=== PATIENT | male | born 1980 | race Caucasian/White ===

== ENCOUNTER → 2020-04-01 14:30 | Outpatient (CLI) | payer BC, SELFPAY ==
--- NOTE | ~2020-04-01 | XR_ITS ---
EXAMINATION: XR cervical spine 4-5V DATE: 04/01/2020 14:48 INDICATION: Cervical radiculopathy. TECHNIQUE: 6 views of cervical spine including flexion and extension views were obtained. COMPARISON: None. FINDINGS: There is hypolordosis of cervical spine. There is no abnormal motion with flexion or extens ion. Vertebral body heights are normal. There is mildly decreased disc height at C5-C6. The uncoverte bral joints are unremarkable. There is mild left facet joint hypertrophy at C3-C4. No central canal s tenosis or prevertebral soft tissue swelling. IMPRESSION: 1. Mild cervical spondylosis. Reviewed, dictated and finalized at location A. [employer]
== END ==
PROVIDERS: Visit Provider Nurse Practitioner Family
DX: M47.22 Other spondylosis with radiculopathy, cervical region (principal)
CPT/HCPCS: 72050

== ENCOUNTER 2020-04-04 15:44 | Outpatient (RCR) | payer BC, SELFPAY ==
--- NOTE | 2020-04-04 17:02 | PTOPEVAL ---
Thank you for referring Mahad Proctor to [facility].? The patient is scheduled to be seen for therapy? ____x/week for ___ weeks. Please review, sign, date and return this plan of care BERTA. I agree with and certify that the following plan of care is medically necessary. Referring Physician Date Admitting Provider: Attending Provider: Kristen Lantigua, ALFONZO Referring Provider: *PT Outpatient Evaluation Start: 04/04/20 15:58 Freq: Status: Active Protocol: Document 04/04/20 15:59 [facility] (Rec: 04/04/20 17:02 [facility] [id number]) Therapy Assessment Status Assessment Status Assessment Status Evaluation Evaluation Information Problem Diagnosis cervical spine pain, cervical radiculopathy Onset 04/01/20 Additional Evaluation Detail NDI - 34% functionally declined Subjective Information patient reports he has had Query Text:As Reported By Patient/ pain starting in the neck when Family he woke up one morning. he reports the pain then began gradually going down his back. he reports he is now having symptoms down the L arm with numbness. he reports he has burning in the L biceps. he reports no injury to the neck or arm. he report she has no pain in the neck. he reports he does feel tight. 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 he reports he has been having symptoms for about 2-3 weeks. he reports he has increased symptoms in the L arm with pulling or lifting activities. he reports he been self- limiting his activity due to fear of pain. Prior Level of Function Comments Additional Prior Level of Function prior to 2-3 week ago, no Comments issues with the neck or the L arm. Pain Assessment Timing of Pain Assessment Timing of Pain Assessment Assessment Pain Scale Pain Scale Used Numeric (1 - 10) Self Report Pain Assessment Neck Reported Pain Level 4 Pain Radiation Left Arm,Left Elbow Pain Frequency Acute,Continuous Lowest Pain Intensity 4 Greatest Radha
--- NOTE | 2020-05-14 11:12 | PCPTNOTE ---
05/14/20 - patient has not been to therapy in nearly a month. he has been called and reports he will not continue PT at this time. as of this date, patient will be DC'd from skilled PT services and all progress towards goals will be taken from most recent evaluation/note. JUSTICE
== END 2020-04-16 11:29 | disposition home or self-care (01) ==
LOC: CHSPT 15:44
PROVIDERS: Visit Provider Nurse Practitioner Family
DX: M54.12 Radiculopathy, cervical region (principal); M54.2 Cervicalgia
CPT/HCPCS: 97012; 97014; 97110; 97140; 97161; G0283

== ENCOUNTER 2021-01-13 11:49 | Outpatient (CLI) | payer BC, SELFPAY ==
[2021-01-13 13:09] LABS: SARS-CoV-2 RNA PCR Negative (Negative)
== END 2021-01-13 11:50 | disposition home or self-care (01) ==
LOC: CHSLAB 11:52
PROVIDERS: PCP Internal Medicine; Visit Provider Internal Medicine
DX: Z20.822 Contact with and (suspected) exposure to COVID-19 (principal)
CPT/HCPCS: C9803; U0003; U0005

== ENCOUNTER 2022-02-24 04:38 | Emergency (ER) | payer BC, SELFPAY ==
--- NOTE | ~2022-02-24 | XR_ITS ---
EXAMINATION: XR chest 1V portable DATE: 02/24/2022 05:05 INDICATION: Shortness of breath. COVID one week prior. TECHNIQUE: frontal view of the chest was obtained. COMPARISON: None FINDINGS: The lungs are clear with no focal airspace opacities, pulmonary edema, pleural effusion or pneumothor ax. The cardiomediastinal silhouette is normal. Visualized bones and soft tissues are unremarkable. IMPRESSION: 1. No acute cardiopulmonary disease. Reviewed, dictated and finalized at location A. HOST
[2022-02-24 04:40] VITALS: BP 120/87; PULSE 89; RESP 20; TEMP 36; O2SAT 98
[2022-02-24 05:04] LABS: Basophils Absolute Auto 0.01 K/mm3 (0.00-0.10); Basophils Percent Auto 0.2 % (0.0-1.0); Eosinophils Absolute Auto 0.04 K/mm3 (0.02-0.50); Eosinophils Percent Auto 0.9 % (1.0-6.0); Hematocrit 47.4 % (40.0-54.0); Hemoglobin 15.9 g/dL (14.0-18.0); Immature Granulocyte Absolute 0.03 K/mm3 (0.00-0.00); Immature Granulocyte Percent A 0.7 % (0.0-0.0); Lymphocytes Absolute Auto 1.89 K/mm3 (1.10-4.50); Mean Corpuscular HGB Conc 33.5 g/dL (32.0-36.0); Mean Corpuscular Hemoglobin 29.9 pg (27.0-31.0); Mean Corpuscular Volume 89.1 fL (78.0-102.0); Mean Platelet Volume 9.4 fl (8.7-11.0); Monocytes Absolute Auto 0.51 K/mm3 (0.10-0.90); Monocytes Percent Auto 11.1 % (2.0-11.0); Neutrophils Absolute Auto 2.1 K/mm3 (1.7-7.2); Neutrophils Percent Auto 46.1 % (50.0-70.0); Platelet Count Result 246 K/mm3 (150-420); Red Blood Count 5.32 M/mm3 (4.70-6.10); Red Cell Distribution Width 11.8 % (11.6-14.4); White Blood Count 4.6 K/mm3 (4.8-10.8)
[2022-02-24 05:18] LABS: Alanine Aminotransferase 29 U/L (16-63); Albumin Level 4.4 g/dL (3.4-5.0); Alkaline Phosphatase 69 U/L (46-116); Anion Gap 13 mmol/L (8-16); Aspartate Amino Transferase 19 U/L (15-37); Bilirubin,Total 0.9 mg/dL (0.00-1.00); Blood Urea Nitrogen 17 mg/dL (7-18); Carbon Dioxide 26 mmol/L (21-32); Chloride 102 mmol/L (98-108); Estimated CRCL calculation 86 ml/min; Estimated Glomerular Filt Rate > 60; Glucose 126 mg/dL (70-99); Osmolality Calculated 295 mOsm/kg (285-295); Potassium 4.1 mmol/L (3.5-5.1); Sodium 141 mmol/L (136-145); Total Protein 7.9 g/dL (6.4-8.2)
[2022-02-24 05:40] LABS: Influenza A QL RT-PCR Negative (Negative); Influenza B QL RT-PCR Negative (Negative); SARS-CoV-2 RNA PCR Positive (Negative)
--- NOTE | 2022-02-24 05:57 | ED.SOB ---
HPI - SOB/Dyspnea General Chief Complaint: Shortness of Breath/Dyspnea Stated Complaint: SOB, COVID + Source: patient and RN notes reviewed Mode of arrival: ambulatory Limitations: no limitations History of Present Illness HPI Narrative: patient states that he was diagnosed with COVID now 6 days ago. He saw his PCP who prescribed him Paxlovid. He said he only took it for 2 days and then stopped because it made him very sick. Did not call his primary care physician to discuss alternative medications.He was on his way to work and just felt horrible. He continues to have cough which when coughing so much makes him short of breath. He is having some nausea and mostly body aches. He has generalized weakness. MD elicited complaint: shortness of breath and cough Onset (ago): day(s) (this morning) Context: recent illness Timing: constant Severity: moderate Exacerbating factors: exertion and coughing Relieving factors: nothing Associated symptoms: cough Related Data Home Medications Medication Instructions Recorded Confirmed nirmatrelvir 300 mg (150 mg See Rx Instructions .Route .COMPLEX 02/24/22 02/24/22 x2)-ritonavir 100 mg tablet,dose pack(EUA) (Paxlovid) Allergies Allergy/AdvReac Type Severity Reaction Status Date / Time No Known Allergies Allergy Verified 02/24/22 04:46 Review of Systems Review of Systems: All systems reviewed & are unremarkable except as noted in HPI and below Gastrointestinal: Gastrointestinal: Reports nausea and Denies vomiting Musculoskeletal: Musculoskeletal: Reports myalgias Neurologic: Reports weakness PMFSH Past Medical History Medical History (Updated 02/24/22 @ 06:11 by Karan Rodas MD) No active medical problems Surgical History Surgical History (Updated 02/24/22 @ 06:11 by Karan Rodas MD) H/O knee surgery Social History Social History (Updated 02/24/22 @ 06:11 by Karan Rodas MD) Smoking status: Current every day smoker Tobacco type: cigarettes Exam Const: General: healthy appearing, no acute distress and alert Nutritional Appearance: well nourished Orientation/consciousness: patient oriented x3 Limitations: no limitations HENMT: Head: normal to inspection Ears: external ears normal Eyes: Conjunctivae: conjunctivae normal Pupils: Equal, round and reactive pupils present EOM: EOMs intact bilaterally Neck: Neck: normal visual inspection Resp: Effort & Inspection: normal respiratory effort, not labored and not tachypneic Auscultation: clear to auscultation bilaterally Cardio: Rate: regular rate Rhythm: regular rhythm GI: GI Palp: Yes Soft to palpation and No Tenderness to palpation present (GI) Auscultation: normal bowel sounds Back/Spine/Pelvis: Cervical Spine: cervical ROM normal Thoracic/Lumbar Spine: thoraco-lumbar ROM normal Skin: General skin exam: normal color Rashes: no rashes Neuro: General: patient oriented x3, moves all extremities, no focal motor deficits and CN's II-XI intact bilaterally Speech: normal speech Gait exam (Neuro): Normal gait present Extrem: General: normal to inspection and no clubbing, cyanosis or edema Psych: Mental Status: mental status grossly normal Affect: normal affect Attitude: cooperative Course Course Emergency Course: I explained to him that it is more than 5 days since he tested positive. There is no other medication that is indicated for COVID at this time. Hospitalization is not needed due to he is not requiring any supplemental oxygen is not respiratory distress. He can use Tylenol Motrin, cough cold medicine [id number]. I recommended that he get plenty of rest drink plenty of fluids eat healthy diet which is what was found to work in the last 3 years during the COVID pandemic. Vital Signs Vital signs: Vital Signs Temperature 36.0 C L 02/24/22 04:40 Pulse Rate 89 02/24/22 04:40 Respiratory Rate 20 02/24/22 04:40 Blood Pressure 120/87 02/24/22
[2022-02-24 06:08] VITALS: BP 122/84; PULSE 87; RESP 18; TEMP 36.4; O2SAT 97
== END 2022-02-24 06:17 | disposition home or self-care (01) ==
PROVIDERS: Emergency Provider Emergency Medicine; PCP Internal Medicine
DX: U07.1 COVID-19 (principal)
CPT/HCPCS: 36415; 71045; 80053; 85025; 87636; 99283

== ENCOUNTER 2022-04-03 02:25 | Day surgery (SDC) | payer BC, SELFPAY ==
[2022-03-18 14:25] VITALS: BMI 35.9
--- NOTE | 2022-04-02 13:46 | P.PNAN_ITS ---
Anes - Initial Pre Proc Eval Procedure: Operation Date: 04/03/22 08:15 Proposed Procedures p Esophagogastroduodenoscopy & Colonoscopy - Quincy Frazier MD Date/Time: 04/02/22 13:46 Surgeon: Quincy Frazier MD Pre Op Diagnosis: family hx colon ca, GERD, change in bowel habits Patient Data Age: 41 Gender: M Height: 1.73 m Weight: 107 kg Allergies Allergy/AdvReac Type Severity Reaction Status Date / Time No Known Allergies Allergy Verified 04/03/22 06:52 Home Medications Medication Instructions Recorded Confirmed Type acetaminophen 650 mg tablet 650 mg PO Q4H PRN Pain 03/18/22 04/03/22 History famotidine 40 mg tablet 40 mg PO DAILY 03/18/22 04/03/22 History ibuprofen 600 mg tablet 600 mg PO Q6H PRN Pain 03/18/22 04/03/22 History Patient hx anesthesia problems: none Family hx anesthesia problems: none Results Review: All pre-operative results and documents have been reviewed as part of the pre- operative evaluation. [facility] Past Medical History Medical History (Updated 04/02/22 @ 13:54 by Quincy Frazier MD) GERD (gastroesophageal reflux disease) Hyperlipidemia LAURA (obstructive sleep apnea) CPAP Surgical History Surgical History H/O knee surgery Social History Social History Smoking status: Current some day smoker Tobacco type: cigarettes Alcohol intake: current Drinks per week: 12 Substance use: current Substance use type: marijuana Other substance usage details: Nightly for sleep Living arrangements: with family Spiritual care concerns: No Anes - Eval Final PreProcedure Day of Procedure 04/02/22 13:46 Patient weight: obese Heart: regular rate and rhythm Lungs: clear to auscultation Airway: Mallampati scale class II Neurological: alert and oriented Last oral intake: >/= 8 hours ASA classification: III Emergent: no Anesthetic plan: proceed Anesthesia type and monitoring: general GIVS and standard monitoring Results Review: All pre-operative results and documents have been reviewed as part of the pre- operative evaluation. Informed Consent: The patient's anesthetic plan and its attendant risks and benefits were discussed with the patient/family/POA. Questions were solicited and answers provided to the satisfaction of the patient/family/POA.
--- NOTE | 2022-04-02 13:51 | PM.HPGS ---
History of Present Illness History of Present Illness Consent: Risks, benefits, and alternatives have been discussed and questions answered. Patient agrees to proceed with procedure. Chief complaint: family hx colon ca, GERD, change in bowel habits Narrative: Mahad Proctor is a 41 year old male Referred for colon cancer screening. He has family history of colon cancer. He also has problems with gastroesophageal reflux. for least a year or more he has had significant heartburn. Taking famotidine has helped somewhat. Also, avoiding food and drink before bedtime it has helped him. Denies dysphagia Review of Systems Review of Systems: All systems reviewed & are unremarkable except as noted in HPI and below PMFSH Past Medical History Medical History GERD (gastroesophageal reflux disease) Hyperlipidemia LAURA (obstructive sleep apnea) CPAP Surgical History Surgical History H/O knee surgery Social History Social History Smoking status: Current some day smoker Tobacco type: cigarettes Alcohol intake: current Drinks per week: 12 Substance use: current Substance use type: marijuana Other substance usage details: Nightly for sleep Living arrangements: with family Spiritual care concerns: No Meds Home Medications and Allergies Home Medications Medication Instructions Recorded Confirmed Type acetaminophen 650 mg tablet 650 mg PO Q4H PRN Pain 03/18/22 04/03/22 History famotidine 40 mg tablet 40 mg PO DAILY 03/18/22 04/03/22 History ibuprofen 600 mg tablet 600 mg PO Q6H PRN Pain 03/18/22 04/03/22 History Allergies Allergy/AdvReac Type Severity Reaction Status Date / Time No Known Allergies Allergy Verified 04/03/22 06:52 Exam Const: General: alert Orientation/consciousness: patient oriented x3 Resp: Auscultation: clear to auscultation bilaterally Cardio: Rhythm: regular rhythm GI: GI Palp: Yes Soft to palpation and No Tenderness to palpation present (GI) Neuro: General: patient oriented x3 Assessment and Plan Assessment and plan (1) Colon cancer screening: Code(s): Z12.11 - Encounter for screening for malignant neoplasm of colon Status: Acute Assessment and Plan: Colonoscopy with possible biopsy or polypectomy or cautery or injection of substances. (2) GERD (gastroesophageal reflux disease): Code(s): K21.9 - Gastro-esophageal reflux disease without esophagitis Status: Acute Assessment and Plan: EGD with possible biopsy or dilatation or cautery.
[2022-04-03 06:54] VITALS: BP 116/73; PULSE 79; RESP 16; TEMP 36.4; O2SAT 98
[2022-04-03] MEDS: LACTATED RINGERS 1,000 ML 150 ML IV CONT (07:03)
[2022-04-03] MEDS: SIMETHICONE ORAL SUSPENSION 20 MG/0.3 ML 30 ML BOTTLE 0.6 ML IRRIGATION (08:22)
--- NOTE | 2022-04-03 08:38 | SUR.OPER ---
EGD: start 806, end 810 Colon: start 815, end 837
[2022-04-03 08:42] VITALS: BP 97/72; PULSE 69; RESP 21; O2SAT 98
[2022-04-03 08:52] VITALS: BP 95/70; PULSE 70; RESP 22; O2SAT 100
[2022-04-03 09:02] VITALS: BP 120/90; PULSE 65; RESP 18; O2SAT 100
== END 2022-04-03 09:15 | disposition home or self-care (01) ==
PROVIDERS: PCP Internal Medicine; Visit Provider Internal Medicine Gastroenterology
PROC: 0DJ08ZZ Inspection of Upper Intestinal Tract, Via Natural or Artificial Opening Endoscopic (ICD-10-PCS; CPT 43235; principal; 2022-04-03 08:15)
DX: Z12.11 Encounter for screening for malignant neoplasm of colon (principal); D12.2 Benign neoplasm of ascending colon; Z80.0 Family history of malignant neoplasm of digestive organs; K21.00 Gastro-esophageal reflux disease with esophagitis, without bleeding; K29.70 Gastritis, unspecified, without bleeding; E78.5 Hyperlipidemia, unspecified; G47.33 Obstructive sleep apnea (adult) (pediatric); F12.90 Cannabis use, unspecified, uncomplicated; F17.210 Nicotine dependence, cigarettes, uncomplicated; E66.9 Obesity, unspecified; Z68.35 Body mass index [BMI] 35.0-35.9, adult
CPT/HCPCS: 45385; 45381; 45388; 43239; 87081; 88305; J2704; J7120

== ENCOUNTER 2022-10-16 02:26 | Day surgery (SDC) | payer BC, SELFPAY ==
[2022-10-06 13:16] VITALS: BMI 37.2
--- NOTE | 2022-10-15 15:18 | P.HP_ITS ---
History of Present Illness History of Present Illness Consent: Risks, benefits, and alternatives have been discussed and questions answered. Patient agrees to proceed with procedure. Chief complaint: ascending colon polyps Narrative: Mahad Proctor is a 42 year old male Who 6 months ago underwent colonoscopy. He was found have 2 quite large polyps in the ascending colon. These were able to be removed endoscopically. The larger of the 2 had a broad base in for fear that it was not completely removed, argon plasma public relations account supervisor was used at the base. He returns now to ensure that there is no residual polyp tissue Review of Systems Review of Systems: All systems reviewed & are unremarkable except as noted in HPI and below PMFSH Past Medical History Medical History GERD (gastroesophageal reflux disease) Hyperlipidemia LAURA (obstructive sleep apnea) CPAP Surgical History Surgical History H/O knee surgery Social History Social History Smoking status: Current some day smoker Tobacco type: cigarettes Alcohol intake: current Drinks per week: 12 Substance use: current Substance use type: marijuana Other substance usage details: Nightly for sleep Living arrangements: with family Additional living arrangements comments: With Janeth Tavarez Home Medications and Allergies Home Medications Medication Instructions Recorded Confirmed Type acetaminophen 650 mg tablet 650 mg PO Q4H PRN Pain 03/18/22 10/06/22 History ibuprofen 600 mg tablet 600 mg PO Q6H PRN Pain 03/18/22 10/06/22 History pantoprazole 40 mg tablet,delayed 40 mg PO QAM 4 weeks #90 tabs 07/23/22 10/16/22 Rx release Allergies Allergy/AdvReac Type Severity Reaction Status Date / Time No Known Allergies Allergy Verified 10/16/22 08:10 Exam Resp: Auscultation: clear to auscultation bilaterally Cardio: Rate: regular rate Rhythm: regular rhythm GI: GI Palp: Yes Soft to palpation and No Tenderness to palpation present (GI) Assessment and Plan Assessment and plan (1) Adenomatous polyp of ascending colon: Code(s): D12.2 - Benign neoplasm of ascending colon Status: Acute Assessment and Plan: Colonoscopy with possible biopsy or polypectomy or cautery or injection of substances.
[2022-10-16 08:14] VITALS: BP 102/62; PULSE 75; RESP 20; TEMP 36.3; O2SAT 97; BMI 35.6
[2022-10-16] MEDS: LACTATED RINGERS 1,000 ML 150 ML IV CONT (08:26)
--- NOTE | 2022-10-16 08:37 | WPDANESEPPF ---
[place] - Initial Pre Proc Eval Procedure: Operation Date: 10/16/22 09:00 Proposed Procedures p Colonoscopy - Quincy Frazier MD Date/Time: 10/16/22 08:37 Surgeon: Quincy Frazier MD Pre Op Diagnosis: ascending colon polyps Patient Data Age: 42 Gender: M Height: 1.73 m Weight: 106.5 kg Last Vital Signs Temp 97.3 F L 10/16/22 08:14 Pulse 75 10/16/22 08:14 Resp 20 10/16/22 08:14 BP 102/62 10/16/22 08:14 Pulse Ox 97 10/16/22 08:14 O2 Del Method Room Air 10/16/22 08:14 Allergies Allergy/AdvReac Type Severity Reaction Status Date / Time No Known Allergies Allergy Verified 10/16/22 08:10 Home Medications Medication Instructions Recorded Confirmed Type acetaminophen 650 mg tablet 650 mg PO Q4H PRN Pain 03/18/22 10/06/22 History ibuprofen 600 mg tablet 600 mg PO Q6H PRN Pain 03/18/22 10/06/22 History pantoprazole 40 mg tablet,delayed 40 mg PO QAM 4 weeks #90 tabs 07/23/22 10/16/22 Rx release Patient hx anesthesia problems: none Family hx anesthesia problems: none Results Review: All pre-operative results and documents have been reviewed as part of the pre-operative evaluation. [facility] Past Medical History Medical History GERD (gastroesophageal reflux disease) Hyperlipidemia LAURA (obstructive sleep apnea) CPAP Surgical History Surgical History H/O knee surgery Social History Social History Smoking status: Current some day smoker Tobacco type: cigarettes Alcohol intake: current Drinks per week: 12 Substance use: current Substance use type: marijuana Other substance usage details: Nightly for sleep Living arrangements: with family Additional living arrangements comments: With Janeth Castrejon - Eval Final PreProcedure Day of Procedure 10/16/22 08:37 Patient weight: normal Heart: regular rate and rhythm Lungs: clear to auscultation Airway: Mallampati scale class II Neurological: alert and oriented Last oral intake: >/= 8 hours ASA classification: II Emergent: no Anesthetic plan: proceed Anesthesia type and monitoring: general GIVS and standard monitoring Results Review: All pre-operative results and documents have been reviewed as part of the pre-operative evaluation. Informed Consent: The patient's anesthetic plan and its attendant risks and benefits were discussed with the patient/family/POA. Questions were solicited and answers provided to the satisfaction of the patient/family/POA.
[2022-10-16 09:15] VITALS: BP 96/53; PULSE 58; RESP 16; O2SAT 98
[2022-10-16 09:25] VITALS: BP 113/91; PULSE 60; RESP 18; O2SAT 98
[2022-10-16 09:35] VITALS: BP 112/89; PULSE 70; RESP 18; O2SAT 97
== END 2022-10-16 09:45 | disposition home or self-care (01) ==
PROVIDERS: PCP Internal Medicine; Visit Provider Internal Medicine Gastroenterology
PROC: 0DJD8ZZ Inspection of Lower Intestinal Tract, Via Natural or Artificial Opening Endoscopic (ICD-10-PCS; CPT 45378; principal; 2022-10-16 09:00)
DX: Z09 Encounter for follow-up examination after completed treatment for conditions other than malignant neoplasm (principal); D12.8 Benign neoplasm of rectum; D12.2 Benign neoplasm of ascending colon; Z80.0 Family history of malignant neoplasm of digestive organs; E78.5 Hyperlipidemia, unspecified; G47.33 Obstructive sleep apnea (adult) (pediatric); K21.9 Gastro-esophageal reflux disease without esophagitis; F17.290 Nicotine dependence, other tobacco product, uncomplicated; F12.90 Cannabis use, unspecified, uncomplicated
CPT/HCPCS: 45385; 45381; 88305; J2704; J7120

== ENCOUNTER 2024-01-12 04:37 | Day surgery (SDC) | payer BC, SELFPAY ==
[2023-12-28 14:51] VITALS: BMI 35.0
[2024-01-12 11:49] VITALS: BP 113/70; PULSE 75; RESP 18; TEMP 36.1; O2SAT 98
[2024-01-12] MEDS: LACTATED RINGERS 1,000 ML 150 ML IV CONT (11:59)
--- NOTE | 2024-01-12 12:40 | WPDANESEPPF ---
Anes - Initial Pre Proc Eval Procedure: Operation Date: 01/12/24 13:00 Proposed Procedures p Colonoscopy - Enrique Stafford MD Date/Time: 01/12/24 12:40 Surgeon: Enrique Stafford MD Pre Op Diagnosis: hx of colon polyps, family hx of cancer Patient Data Age: 43 Gender: M Height: 1.73 m Weight: 105.4 kg Last Vital Signs Temp 97 F L 01/12/24 11:49 Pulse 75 01/12/24 11:49 Resp 18 01/12/24 11:49 BP 113/70 01/12/24 11:49 Pulse Ox 98 01/12/24 11:49 O2 Del Method Room Air 01/12/24 11:49 Allergies Allergy/AdvReac Type Severity Reaction Status Date / Time No Known Allergies Allergy Verified 01/12/24 11:48 Home Medications Medication Instructions Recorded Confirmed Type pantoprazole 40 mg tablet,delayed See Rx Instructions .Route 09/02/23 01/12/24 Rx release .COMPLEX #90 tabs meloxicam 15 mg tablet 15 mg PO DAILY 12/28/23 01/12/24 History Patient hx anesthesia problems: none Family hx anesthesia problems: none Results Review: All pre-operative results and documents have been reviewed as part of the pre-operative evaluation. [facility] Past Medical History Medical History GERD (gastroesophageal reflux disease) Hyperlipidemia LAURA (obstructive sleep apnea) CPAP Surgical History Surgical History H/O knee surgery Social History Social History Smoking status: Former smoker Tobacco type: cigarettes Alcohol intake: current Drinks per week: 10 Substance use: current Substance use type: marijuana Other substance usage details: Nightly for sleep Living arrangements: with family Additional living arrangements comments: With Janeth Spiritual care concerns: No Anes - Eval Final PreProcedure Day of Procedure 01/12/24 12:40 Patient weight: obese Heart: regular rate and rhythm Lungs: clear to auscultation Airway: Mallampati scale class II Neurological: alert and oriented Last oral intake: >/= 8 hours ASA classification: II Emergent: no Anesthetic plan: proceed Anesthesia type and monitoring: general GIVS and standard monitoring Results Review: All pre-operative results and documents have been reviewed as part of the pre-operative evaluation. Smoker, 20 pack years, quit 1 week ago. Informed Consent: The patient's anesthetic plan and its attendant risks and benefits were discussed with the patient/family/POA. Questions were solicited and answers provided to the satisfaction of the patient/family/POA.
--- NOTE | 2024-01-12 12:56 | PM.HPGS ---
History of Present Illness History of Present Illness Consent: Risks, benefits, and alternatives have been discussed and questions answered. Patient agrees to proceed with procedure. Chief complaint: hx of colon polyps, family hx of cancer Narrative: Mahad Proctor is a 43 year old male with colon polyps last year, father had colon cancer Review of Systems Review of Systems: All systems reviewed & are unremarkable except as noted in HPI and below PMFSH Past Medical History Medical History GERD (gastroesophageal reflux disease) Hyperlipidemia LAURA (obstructive sleep apnea) CPAP Surgical History Surgical History H/O knee surgery Social History Social History Smoking status: Former smoker Tobacco type: cigarettes Alcohol intake: current Drinks per week: 10 Substance use: current Substance use type: marijuana Other substance usage details: Nightly for sleep Living arrangements: with family Additional living arrangements comments: With Janeth Spiritual care concerns: No Meds Home Medications and Allergies Home Medications Medication Instructions Recorded Confirmed Type pantoprazole 40 mg tablet,delayed See Rx Instructions .Route 09/02/23 01/12/24 Rx release .COMPLEX #90 tabs meloxicam 15 mg tablet 15 mg PO DAILY 12/28/23 01/12/24 History Allergies Allergy/AdvReac Type Severity Reaction Status Date / Time No Known Allergies Allergy Verified 01/12/24 11:48 Vital Signs Vital Signs - 24 hr 01/12/24 11:49 Temperature 97 F L Pulse Rate 75 Respiratory Rate 18 Blood Pressure 113/70 Pulse Oximetry 98 Oxygen Delivery Room Air Exam Const: General: comfortable and no acute distress HENMT: Face/Nose/Sinus: Normal nares present Eyes: General: appearance normal, both eyes and all related structures Neck: Neck: no JVD Resp: Auscultation: clear to auscultation bilaterally Cardio: Rate: regular rate Rhythm: regular rhythm GI: Inspection: non-distended GI Palp: Yes Soft to palpation Skin: General skin exam: normal color Neuro: General: gait normal Speech: normal speech Extrem: General: normal to inspection Psych: Mental Status: mental status grossly normal Assessment and Plan Assessment and plan (1) Adenomatous polyp of ascending colon: Code(s): D12.2 - Benign neoplasm of ascending colon Status: Acute Assessment and Plan: colonoscopy
[2024-01-12 13:21] VITALS: BP 86/53; PULSE 64; RESP 18; O2SAT 92
[2024-01-12 13:31] VITALS: BP 89/62; PULSE 63; RESP 18; O2SAT 96
[2024-01-12 13:41] VITALS: BP 108/68; PULSE 61; RESP 18; O2SAT 93
== END 2024-01-12 13:53 | disposition home or self-care (01) ==
PROVIDERS: PCP Internal Medicine; Referring Provider Internal Medicine Gastroenterology; Visit Provider Internal Medicine Gastroenterology
PROC: 0DJD8ZZ Inspection of Lower Intestinal Tract, Via Natural or Artificial Opening Endoscopic (ICD-10-PCS; CPT 45378; principal; 2024-01-12 13:00)
DX: Z09 Encounter for follow-up examination after completed treatment for conditions other than malignant neoplasm (principal); D12.3 Benign neoplasm of transverse colon; D12.4 Benign neoplasm of descending colon; E78.5 Hyperlipidemia, unspecified; K21.9 Gastro-esophageal reflux disease without esophagitis; G47.33 Obstructive sleep apnea (adult) (pediatric); F12.90 Cannabis use, unspecified, uncomplicated; E66.9 Obesity, unspecified; Z68.35 Body mass index [BMI] 35.0-35.9, adult; Z98.890 Other specified postprocedural states; Z99.89 Dependence on other enabling machines and devices; Z87.891 Personal history of nicotine dependence; Z80.0 Family history of malignant neoplasm of digestive organs
CPT/HCPCS: 45385; 88305; J2003; J2704; J7120

== ENCOUNTER 2024-06-12 08:31 | Outpatient (CLI) | payer BC, SELFPAY ==
--- NOTE | ~2024-06-12 | XR_ITS ---
XR knee RT min 4V Ordering provider: Usama Velez MD History: . GENERAL RT KNEE PAIN,CHRONIC . Comparison: None. FINDINGS: BONES: No acute fracture or dislocation. Postoperative changes in the distal femur. Thickening of the bones. JOINT SPACES: Severe osteoarthritic changes with severe narrowing of the lateral compartment and with osteophytes. SOFT TISSUES: Normal. IMPRESSION: No acute osseous abnormality right knee. Postoperative changes. Severe osteoarthritic changes. Reviewed, dictated and finalized at location A.
--- OUTSIDE RECORDS SUMMARY | 2024-06-12 09:00 | XMS_ITS | Referral Summary ---
Author Organization [facility] Address [address] [facility] [place] [address] Care Team Providers Care Birthing Nurse Name Role Phone Aly Beck MD Primary Care Provider [phone] Allergies No known active allergies Medications pantoprazole DR (PROTONIX) 40 mg EC tablet Take 1 tablet (40 mg total) by mouth daily 08/23/2022 Active albuterol HFA (PROVENTIL HFA,VENTOLIN HFA,PROAIR HFA) 90 mcg/actuation inhaler Inhale 2 puffs every 6 (six) hours as needed 02/14/2019 Active inhalational spacing device spacer as directed 02/14/2019 Active meloxicam (MOBIC) 15 mg tablet 07/10/2023 Active benzonatate (TESSALON) 200 mg capsuleIndicati ons:Influenza A Take 1 capsule (200 mg total) by mouth 3 (three) times a day as needed for cough 30 capsule 07/19/2023 Active Active Problems Problem Noted Date Diagnosed Date Primary osteoarthritis of both knees 05/26/2023 Tobacco abuse 03/03/2023 Assessment & Plan (03/03/2023 3:15 PM CLINICAL NURSING MANAGER): The detrimental effects of tobacco use were discussed with the patient. We discussed that smoking is a major risk factor for heart attacks, strokes, chronic obstructive pulmonary disease, and cancer. The importance of discontinuing the use of tobacco was discussed with the patient. Methods to aid in tobacco cessation including the cold [place] method, nicotine replacement therapy, and pharmacologic therapy were discussed. Electronic cigarettes and acupuncture were also discussed. LAURA on CPAP 03/31/2021 Overview (03/31/2021): DME in [facility] in [place] Assessment & Plan (03/03/2023 3:13 PM CLINICAL NURSING MANAGER): Patient is compliant with CPAP therapy Clearly benefiting from therapy, should continue indefinately. Assessment & Plan (09/09/2022 3:00 PM CDT): Patient is compliant with CPAP therapy Clearly benefiting from therapy, should continue indefinately. He is interested in [facility], needs to lose weight and repeat PSG for qualification purposes Assessment & Plan (06/30/2021 2:09 PM CDT): Patient is compliant with CPAP therapy Clearly benefiting from therapy, should continue indefinately. Assessment & Plan (03/31/2021 2:00 PM CLINICAL NURSING MANAGER): Patient is compliant with CPAP therapy Clearly benefiting from therapy, should continue indefinately. He has significant aerophagia Will get CPAP settings form his provider Will try to adjust settings If no better will have to switch to Bipap and do a bipap titration in lab Social History Tobacco Use Types Packs/Day Years Used Date Smoking Tobacco: Former Cigarettes Tobacco Cessation:Counseling Given: Not Answered Personal Safety Answer Date Recorded Getting School Help Needed Not on file 03/03 Sex and Gender Information Value Date Recorded Sex Assigned at Not on file Legal Sex Male 11:34 PM CLINICAL NURSING MANAGER Gender Identity Not on file Sexual Orientation Not on file Last Filed Vital Signs Vital Sign Reading Time Taken Comments Blood Pressure 116/66 07/19/2023 11:54 AM CDT Pulse 86 07/19/2023 11:54 AM CDT Temperature 37 C (98.6 F) 07/19/2023 11:54 AM CDT Respiratory Rate 18 07/19/2023 11:54 AM CDT Oxygen Saturation 95% 07/19/2023 11:54 AM CDT Inhaled Oxygen Concentration - - Weight 104.3 kg (230 lb) 07/19/2023 11:54 AM CDT Height 172.7 cm (5' 8 ) 07/19/2023 11:54 AM CDT Body Mass Index 34.97 07/19/2023 11:54 AM CDT Plan of Treatment Not on file Insurance ANTHEM ACCESS ANTHEM ACCESS Care Teams Birthing Nurse Relationship Specialty Start Date End Date Aly Beck MD PCP - General Internal Medicine 02/19/21
--- OUTSIDE RECORDS SUMMARY | 2024-06-12 09:00 | XMS_ITS | Clinical Summary ---
Author Organization [facility] A Address [address] [place] [address] Care Team Providers Care Rope Cutter Name Role Phone Aly Beck MD Primary Care Provider [phone] Allergies No known active allergies Medications pantoprazole [...] 03/03/2023 Assessment & Plan (03/03/2023 3:15 PM PLEAT TAPER): The detrimental effects of tobacco use were discussed with the patient. We discussed that smoking is a major risk factor for heart attacks, strokes, chronic obstructive pulmonary disease, and cancer. The importance of discontinuing the use of tobacco was discussed with the patient. Methods to aid in tobacco cessation including the cold [place] method, nicotine replacement therapy, and pharmacologic therapy were discussed. Electronic cigarettes and acupuncture were also discussed. LAURA on CPAP 03/31/2021 Overview (03/31/2021): DME in [facility] in [place] Assessment & Plan (03/03/2023 3:13 PM PLEAT TAPER): Patient is compliant with CPAP therapy Clearly [...] indefinately. Assessment & Plan (03/31/2021 2:00 PM PLEAT TAPER): Patient is compliant with CPAP therapy Clearly benefiting from therapy, should continue indefinately. He has significant aerophagia Will get CPAP settings form his provider Will try to adjust settings If no better will have to switch to Bipap and do a bipap titration in lab Medical History Medical History Date Comments Sleep apnea, obstructive Family History Medical History Relation Name Comments Atrial fibrillation Father Sleep apnea Father Sleep apnea Mother Relation Name Status Comments Father Mother Social History Tobacco Use Types Packs/Day Years Used Date Smoking Tobacco: Former Cigarettes Tobacco Cessation:Counseling Given: Not Answered Personal Safety Answer Date Recorded Getting School Help Needed Not on file 03/03 Sex and Gender Information Value Date Recorded Sex Assigned at Not on file Legal Sex Male 11:34 PM PLEAT TAPER Gender Identity Not on file Sexual Orientation Not on file Obstetrics History Last Filed Vital Signs Vital Sign Reading [...] 07/19/2023 11:54 AM CDT Plan of Treatment Health Maintenance Due Date Last Done Comments Colon Cancer Screening-Colonoscopy 1978 Depression Screening 1978 Hepatitis C Screening 1978 DTaP/Tdap/Td Vaccine (1 - Tdap) 1989 Hepatitis B Screening 1996 Regular Well Visit/Exam 18-64 1996 Covid-19 Vaccine (4 2023-2 5 season) 2023 03/20/2021, 06/28/2020, 05/29/2020 Influenza Vaccine (#1) 2023 , 01/31/2020, 01/29/2018 HPV Vaccines Aged Out No longer eligi ble based on patient's age to complete this topic Pneumococcal vaccine <65 Aged Out No longer eligible based on patient's age to complete this topic Insurance ANTHEM ACCESS ANTHEM ACCESS Care Teams Rope Cutter Relationship Specialty Start Date End Date Aly Beck MD PCP - General Internal Medicine 02/19/21
--- OUTSIDE RECORDS SUMMARY | 2024-06-12 09:00 | XMS_ITS | Clinical Summary ---
Author Organization [facility] Address [address] [place] [address] Care Team Providers Care Rehabilitation Liaison Name Role Phone Aly Beck MD Primary Care Provider [phone] Source Comments [facility],non-owned Affiliates and Associated Physician Practices is amultiple site organization consisting of ambulatory clinics and hospital sitesin [place], [place], [place] and [place]. This disclosure is being madepursuant to the Care Everywhere program and may not contain all information available regarding this patient. Last updated 17.[facility] Allergies No known active allergies Medications * Be aware that medications may not be up to date on this document. Alwaysverify current medications with the patient. Medication Sig Dispensed Refills Start Date End Date Status pantoprazole EC (Protonix) 40 MG tablet 05/19/2023 Active meloxicam (Mobic) 15 MG tablet TAKE ONE TABLET BY MOUTH DAILY 30 tablet 5 02/29/2024 Active Active Problems Problem Noted Date Diagnosed Date Primary osteoarthritis of both knees 05/26/2023 Social History Tobacco Use Types Packs/Day Years Used Date Smoking Tobacco: Never Smokeless Tobacco: Never Tobacco Cessation:Counseling Given: Not Answered Alcohol Use Standard Drinks/Week Comments Never 0 (1 standard drink = 0.6 oz pur e alcohol) PHQ-2 Answer Date Recorded Patient Health Questionnaire-2 Score 0 05/25/2023 Sex and Gender Information Value Date Recorded Sex Assigned at Not on file Gender Identity Not on file Sexual Orientation Not on file Last Filed Vital Signs Vital Sign Reading Time Taken Comments Blood Pressure - - Pulse - - Temperature - - Respiratory Rate - - Oxygen Saturation - - Inhaled Oxygen Concentration - - Weight 108.9 kg (240 lb) 05/25/2023 1:00 PM SKIN FORMER Height 172.7 cm (5' 8 ) 05/25/2023 1:00 PM SKIN FORMER Body Mass Index 36.49 05/25/2023 1:00 PM SKIN FORMER Plan of Treatment Health Maintenance Due Date Last Done Comments COLOGUARD (AGES 45-75) - COL ON CA SCREENING 1978 COLON MONITORING 1978 COLONOSCOPY - COLON CA SCREENING 1978 CT COLONOGRAPHY - COLON CA SCREENING 1978 Colorectal Cancer Screening 1978 FIT - COLON CA SCREENING 1978 FLEX SIG - COLON CA SCREENING 1978 LIPID TESTING 1978 HIV SCREENING 1993 HEPATITIS C SCREENING 09/28/1996 DTAP/TDAP/TD VACCINES (1 - Tdap) 1997 HEPATITIS B VACCINE (1 of 3 - 19+ 3-dose series) 1997 SCREENING FOR DIABETES 05/25/2023 COVID-19 VACCINE (1 - 2023-2 5 season) 2023 INFLUENZA VACCINE (#1) 2023 DEPRESSION SCREENING 03/22/2024 05/25/2023 ZOSTER VACCINE (1 of 2) 2028 HIB VACCINE Aged Out No longer eligi ble based on patient's age to complete this topic HPV VACCINE Aged Out No longer eligi ble based on patient's age to complete this topic MENINGOCOCCAL (Group B) VACC INE SHARED DECISION-MAKING Aged Out No longer eligibl e based on patient's age to complete this topic MENINGOCOCCAL GROUPS A/C/Y/W VACCINE Aged Out No longer eligible b ased on patient's age to complete this topic PNEUMOCOCCAL VACCINE Aged Out No long er eligible based on patient's age to complete this topic Care Teams Rehabilitation Liaison Relationship Specialty Start Date End Date Aly Beck MD [address] [place] [address] PCP - General 04/13/22
--- OUTSIDE RECORDS SUMMARY | 2024-06-12 09:00 | XMS_ITS | Clinical Summary ---
Author Organization [facility] Address [address] [place] [address] [place] [address] Care Team Providers Care Php Software Engineer Name Role Phone Unavailable Primary Care Provider Unavailabl e Allergies No known active allergies Medications albuterol HFA 90 mcg inhaler Take 2 Puffs by inhalation every 6 hours as needed for Shortness of Breath. 8.5 Gram 9 Active inhalational spacing device Spacer Use as directed 1 Each 9 Active Active Problems No known active problems Family History Medical History Relation Name Comments Healthy Father Healthy Mother Relation Name Status Comments Father Alive Mother Alive Social History Tobacco Use Types Packs/Day Years Used Date Smoking Tobacco: Light Smoker Smokeless Tobacco: Never Alcohol Use Standard Drinks/Week Comments Yes 0 (1 standard drink = 0.6 oz pur e alcohol) Sex and Gender Information Value Date Recorded Sex Assigned at Not on file Legal Sex Male 8:59 AM TIMBER WATCHMAN Gender Identity Not on file Sexual Orientation Not on file Last Filed Vital Signs Vital Sign Reading Time Taken Comments Blood Pressure 156/93 02/14/2019 9:06 AM TIMBER WATCHMAN dis cussed Pulse 79 02/14/2019 9:06 AM TIMBER WATCHMAN Temperature 36.9 C (98.5 F) 02/14/2019 9:06 AM TIMBER WATCHMAN Respiratory Rate 18 02/14/2019 9:06 AM TIMBER WATCHMAN Oxygen Saturation 98% 02/14/2019 9:06 AM TIMBER WATCHMAN Inhaled Oxygen Concentration - - Weight 108.9 kg (240 lb) 02/14/2019 9:06 AM TIMBER WATCHMAN Height - - Body Mass Index - - Plan of Treatment Health Maintenance Due Date Last Done Comments PNEUMOCOCCAL VACCINE 0-49 YE ARS (1 of 2 - PCV) 1984 DTAP/TDAP/TD VACCINES (1 - Tdap) 1997 HEPATITIS B VACCINES (1 of 3 - 19+ 3-dose series) 1997 COLORECTAL SCREENING 10/04/2023 Colorectal Cancer Screening 10/04/2023 FIT-DNA Q 3 years 10/04/2023 FIT/FOBT Q 1 year 10/04/2023 Flex Sig/CT Colonography Q 5 years 10/04/2023 INFLUENZA VACCINE (#1) 2023 HPV VACCINES Aged Out No longer eligi ble based on patient's age to complete this topic Insurance [facility]
== END 2024-06-12 08:32 | disposition home or self-care (01) ==
LOC: CHSIMG 08:33
PROVIDERS: PCP Internal Medicine; Visit Provider Orthopaedic Surgery
DX: M25.561 Pain in right knee (principal); Z98.890 Other specified postprocedural states; M17.11 Unilateral primary osteoarthritis, right knee
CPT/HCPCS: 73564

== ENCOUNTER 2024-06-19 08:09 | Outpatient (CLI) | payer BC, SELFPAY ==
[2024-06-19 08:19] LABS: Hematocrit 45.1 % (40.0-54.0); Hemoglobin 14.8 g/dL (14.0-18.0); Mean Corpuscular HGB Conc 32.8 g/dL (32-36); Mean Corpuscular Hemoglobin 30.2 pg (27.0-31.0); Mean Platelet Volume 9.3 fl (8.7-11.0); Platelet Count Result 237 K/mm3 (150-420); Red Cell Distribution Width 12.1 % (11.6-14.4); White Blood Count 7.3 K/mm3 (4.8-10.8)
--- OUTSIDE RECORDS SUMMARY | 2024-06-19 08:19 | XMS_ITS | Clinical Summary ---
Author Organization [facility] Address [address] [place] [address] Care Team Providers Care Alterations Manager Name Role Phone Aly Beck MD Primary Care Provider [phone] Allergies No known active allergies Medications pantoprazole [...] 03/03/2023 Assessment & Plan (03/03/2023 3:15 PM TEST LEAD): The detrimental effects of tobacco use were discussed with the patient. We discussed that smoking is a major risk factor for heart attacks, strokes, chronic obstructive pulmonary disease, and cancer. The importance of discontinuing the use of tobacco was discussed with the patient. Methods to aid in tobacco cessation including the cold [place] method, nicotine replacement therapy, and pharmacologic therapy were discussed. Electronic cigarettes and acupuncture were also discussed. LAURA on CPAP 03/31/2021 Overview (03/31/2021): DME in [facility] in [place] Assessment & Plan (03/03/2023 3:13 PM TEST LEAD): Patient is compliant with CPAP therapy Clearly [...] indefinately. Assessment & Plan (03/31/2021 2:00 PM TEST LEAD): Patient is compliant with CPAP therapy Clearly [...] on file Legal Sex Male 11:34 PM TEST LEAD Gender Identity Not on file Sexual Orientation [...] Insurance ANTHEM ACCESS ANTHEM ACCESS Care Teams Alterations Manager Relationship Specialty Start Date End Date Aly Beck MD PCP - General Internal Medicine 02/19/21
--- OUTSIDE RECORDS SUMMARY | 2024-06-19 08:19 | XMS_ITS | Referral Summary ---
Author Organization [facility] Address [address] [facility] [address] [place] [address] Care Team Providers Care Expander Name Role Phone Aly Beck MD Primary Care Provider [phone] Allergies No known active allergies Medications pantoprazole [...] 03/03/2023 Assessment & Plan (03/03/2023 3:15 PM RN CLINICAL RESOURCE): The detrimental effects of tobacco use were discussed with the patient. We discussed that smoking is a major risk factor for heart attacks, strokes, chronic obstructive pulmonary disease, and cancer. The importance of discontinuing the use of tobacco was discussed with the patient. Methods to aid in tobacco cessation including the cold [place] method, nicotine replacement therapy, and pharmacologic therapy were discussed. Electronic cigarettes and acupuncture were also discussed. LAURA on CPAP 03/31/2021 Overview (03/31/2021): DME in [facility] in [place] Assessment & Plan (03/03/2023 3:13 PM RN CLINICAL RESOURCE): Patient is compliant with CPAP therapy Clearly [...] indefinately. Assessment & Plan (03/31/2021 2:00 PM RN CLINICAL RESOURCE): Patient is compliant with CPAP therapy Clearly [...] on file Legal Sex Male 11:34 PM RN CLINICAL RESOURCE Gender Identity Not on file Sexual Orientation [...] Insurance ANTHEM ACCESS ANTHEM ACCESS Care Teams Expander Relationship Specialty Start Date End Date Aly Beck MD PCP - General Internal Medicine 02/19/21
--- OUTSIDE RECORDS SUMMARY | 2024-06-19 08:19 | XMS_ITS | Clinical Summary ---
Author Organization [facility] Address [address] [place] [address] [place] [address] Care Team Providers Care Roll Contour Grinder Name Role Phone Unavailable Primary Care Provider [...] on file Legal Sex Male 8:59 AM MAINTENANCE AND ENGINEERING MANAGER Gender Identity Not on file Sexual Orientation Not on file Last Filed Vital Signs Vital Sign Reading Time Taken Comments Blood Pressure 156/93 02/14/2019 9:06 AM MAINTENANCE AND ENGINEERING MANAGER dis cussed Pulse 79 02/14/2019 9:06 AM MAINTENANCE AND ENGINEERING MANAGER Temperature 36.9 C (98.5 F) 02/14/2019 9:06 AM MAINTENANCE AND ENGINEERING MANAGER Respiratory Rate 18 02/14/2019 9:06 AM MAINTENANCE AND ENGINEERING MANAGER Oxygen Saturation 98% 02/14/2019 9:06 AM MAINTENANCE AND ENGINEERING MANAGER Inhaled Oxygen Concentration - - Weight 108.9 kg (240 lb) 02/14/2019 9:06 AM MAINTENANCE AND ENGINEERING MANAGER Height - - Body Mass Index - [...] patient's age to complete this topic Insurance [facility]
--- OUTSIDE RECORDS SUMMARY | 2024-06-19 08:19 | XMS_ITS | Clinical Summary ---
Author Organization [facility] [employer] Address [address] [place] [address] Care Team Providers Care Tenter Frame Operator Name Role Phone Aly Beck MD Primary Care Provider [phone] Source Comments [facility] [employer],non-owned Affiliates and Associated Physician Practices is amultiple site organization consisting of ambulatory clinics and hospital sitesin [place], [place], [place] and [place]. This disclosure is being madepursuant to the Care Everywhere program and may not contain all information available regarding this patient. Last updated 17.[facility] [employer] Allergies No known active allergies Medications * [...] 108.9 kg (240 lb) 05/25/2023 1:00 PM FINANCIAL RETIREMENT PLAN SPECIALIST Height 172.7 cm (5' 8 ) 05/25/2023 1:00 PM FINANCIAL RETIREMENT PLAN SPECIALIST Body Mass Index 36.49 05/25/2023 1:00 PM FINANCIAL RETIREMENT PLAN SPECIALIST Plan of Treatment Health Maintenance Due Date [...] age to complete this topic Care Teams Tenter Frame Operator Relationship Specialty Start Date End Date Aly Beck MD [address] [place] [address] PCP - General 04/13/22
[2024-06-19 08:22] LABS: Add Urine Microscopic? NO; Appearance Urine Clear (Clear); Bilirubin Urine Negative (Negative); Blood Urine Negative (Negative); Color Urine Light Yellow (Yellow); Glucose Urine UA Negative (Negative); Ketones Urine Negative (Negative); Leukocyte Esterase Ur Negative (Negative); Nitrate Urine Negative (Negative); Protein Urine Negative (Negative); Specific Grav Ur 1.015 (1.010-1.020); Urobilinogen Urine 0.2 mg/dL (0.2-1.0); pH Urine 7.5 (5.0-8.0)
[2024-06-19 10:00] LABS: Alanine Aminotransferase 30 U/L (16-63); Alkaline Phosphatase 84 U/L (46-116); Anion Gap 10 mmol/L (4-12); Aspartate Amino Transferase 13 U/L (15-37); Bilirubin,Total 0.4 mg/dL (0.00-1.00); Blood Urea Nitrogen 18 mg/dL (7-18); Calcium 8.9 mg/dL (8.5-10.1); Carbon Dioxide 28 mmol/L (21-32); Chloride 101 mmol/L (98-108); Cholesterol 215 mg/dL (0-200); Estimated Glomerular Filt Rate > 60; Glucose 103 mg/dL (70-99); HDL Direct 58 mg/dL (40-60); LDL Cholesterol Calculated 128 mg/dL (<130); Osmolality Calculated 289 mOsm/kg (285-295); Potassium 4.2 mmol/L (3.5-5.1); Sodium 139 mmol/L (136-145); Thyroid Stimulating Hormone 2.82 uIU/mL (0.36-3.74); Total Protein 7.1 g/dL (6.4-8.2); Triglycerides 146 mg/dL (0-150)
== END 2024-06-19 08:10 | disposition home or self-care (01) ==
LOC: CHSLAB 08:11
PROVIDERS: PCP Internal Medicine; Visit Provider Internal Medicine
DX: Z00.00 Encounter for general adult medical examination without abnormal findings (principal)
CPT/HCPCS: 36415; 80053; 80061; 81003; 84443; 85027

== ENCOUNTER 2024-11-16 11:50 | Outpatient (CLI) | payer BC, SELFPAY ==
--- NOTE | 2024-11-16 09:00 | ECG_ITS ---
Test Date: 2024-11-16 12:08:45 Measurements Intervals [place] Rate: 69 P: 14 ND: 127 QRS: 73 QRSD: 106 T: 46 QT: 367 QTc: 395 Interpretive Statements SINUS RHYTHM BORDERLINE ST-T WAVE ABNORMALITY- INFERIOR LEADS BASELINE WANDER- V3 BORDERLINE ECG No previous ECG available for comparison Electronically Signed On 11-16-2024 12:08:45 CDT by Anurag Deras D.O.
--- OUTSIDE RECORDS SUMMARY | 2024-11-16 11:53 | XMS_ITS | Clinical Summary ---
Author Organization [facility] Address [address] [place] [address] [place] [address] Care Team Providers Care Director Of Mobile Marketing Name Role Phone Unavailable Primary Care Provider [...] on file Legal Sex Male 8:59 AM ASPHALT TAMPING MACHINE OPERATOR Gender Identity Not on file Sexual Orientation Not on file Last Filed Vital Signs Vital Sign Reading Time Taken Comments Blood Pressure 156/93 02/14/2019 9:06 AM ASPHALT TAMPING MACHINE OPERATOR dis cussed Pulse 79 02/14/2019 9:06 AM ASPHALT TAMPING MACHINE OPERATOR Temperature 36.9 C (98.5 F) 02/14/2019 9:06 AM ASPHALT TAMPING MACHINE OPERATOR Respiratory Rate 18 02/14/2019 9:06 AM ASPHALT TAMPING MACHINE OPERATOR Oxygen Saturation 98% 02/14/2019 9:06 AM ASPHALT TAMPING MACHINE OPERATOR Inhaled Oxygen Concentration - - Weight 108.9 kg (240 lb) 02/14/2019 9:06 AM ASPHALT TAMPING MACHINE OPERATOR Height - - Body Mass Index - - Plan of Treatment Health Maintenance Due Date Last Done Comments DTAP/TDAP/TD VACCINES (1 - Tdap) 1997 HEPATITIS B VACCINES (1 of 3 - 19+ 3-dose series) 1997 COLORECTAL SCREENING 10/04/2023 Colorectal Cancer Screening 10/04/2023 FIT-DNA Q 3 years 10/04/2023 FIT/FOBT Q 1 year 10/04/2023 Flex Sig/CT Colonography Q 5 years 10/04/2023 INFLUENZA VACCINE (#1) 2024 HPV VACCINES Aged Out No longer eligi ble based on patient's age to complete this topic Insurance
--- OUTSIDE RECORDS SUMMARY | 2024-11-16 11:53 | XMS_ITS | Clinical Summary ---
Author Organization [facility] [employer] Address [address] [place] [address] Care Team Providers Care Canal Superintendent Name Role Phone Aly Beck MD Primary Care Provider [phone] Source Comments [facility] [employer]non-owned Affiliates and Associated Physician Practices is amultiple site organization consisting of ambulatory clinics and hospital sitesin [place], [place], [place] and [place]. This disclosure is being madepursuant to the Care Everywhere program and may not contain all information available regarding this patient. Last updated 17.[facility] [employer] Allergies No known active allergies Medications * Be aware that medications may not be up to date on this document. Alwaysverify current medications with the patient. pantoprazole EC (Protonix) 40 MG tablet 05/19/2023 [...] at Not on file Legal Sex Male 5:07 AM WHEEL ASSEMBLER Gender Identity Not on file Sexual Orientation Not on file Last Filed Vital Signs Vital Sign Reading Time Taken Comments Blood Pressure - - Pulse - - Temperature - - Respiratory Rate - - Oxygen Saturation - - Inhaled Oxygen Concentration - - Weight 108.9 kg (240 lb) 05/25/2023 1:00 PM WHEEL ASSEMBLER Height 172.7 cm (5' 8) 05/25/2023 1:00 PM WHEEL ASSEMBLER Body Mass Index 36.49 05/25/2023 1:00 PM WHEEL ASSEMBLER Plan of Treatment Health Maintenance Due Date [...] VACCINE (1 - 2023-2 5 season) 2023 DEPRESSION SCREENING 03/22/2024 05/25/2023 INFLUENZA VACCINE (#1) 2024 ZOSTER VACCINE (1 of 2) 2028 HIB [...] age to complete this topic Insurance ANTHEM BC/BLUE BLUE [employer] [facility] SELF PAY NO INSURANCE Member Subscriber Plan / Payer (Ef fective for All Dates) Name:Lara Proctor Member ID:Not on file Relation to Subscriber:Not on file Name:LARA PROCTOR Subscriber ID:Not on file (Home) Address: [address] [place] [address] Payer ID:Not on file Group ID:Not on file Type:Self Pay Address: [place], [place] ANTH Care Teams Canal Superintendent Relationship Specialty Start Date End Date Aly Beck MD [address] [place] [address] PCP - General 04/13/22
--- OUTSIDE RECORDS SUMMARY | 2024-11-16 11:53 | XMS_ITS | Clinical Summary ---
[facility] Organization [facility] A Address [address] [place] [address] Care Team Providers Care Gear Machine Operator General Name Role Phone Aly Beck MD Primary Care Provider [phone] Allergies No known active allergies Medications pantoprazole [...] 03/03/2023 Assessment & Plan (03/03/2023 3:15 PM RADIATION CONTROL HEALTH PHYSICIST): The detrimental effects of tobacco use were discussed with the patient. We discussed that smoking is a major risk factor for heart attacks, strokes, chronic obstructive pulmonary disease, and cancer. The importance of discontinuing the use of tobacco was discussed with the patient. Methods to aid in tobacco cessation including the cold [place] method, nicotine replacement therapy, and pharmacologic therapy were discussed. Electronic cigarettes and acupuncture were also discussed. LAURA on CPAP 03/31/2021 Overview (03/31/2021): DME in [facility] in [place] Assessment & Plan (03/03/2023 3:13 PM RADIATION CONTROL HEALTH PHYSICIST): Patient is compliant with CPAP therapy Clearly [...] indefinately. Assessment & Plan (03/31/2021 2:00 PM RADIATION CONTROL HEALTH PHYSICIST): Patient is compliant with CPAP therapy Clearly [...] on file Legal Sex Male 11:34 PM RADIATION CONTROL HEALTH PHYSICIST Gender Identity Not on file Sexual Orientation [...] 11:54 AM CDT Height 172.7 cm (5' 8) 07/19/2023 11:54 AM CDT Body Mass Index 34.97 07/19/2023 11:54 AM CDT Plan of Treatment Health Maintenance Due Date Last Done Comments Colon Cancer Screening-Colonoscopy 1978 Depression Screening 1978 Hepatitis C Screening 1978 DTaP/Tdap/Td Vaccine (1 - Tdap) 1989 Hepatitis B Screening 1996 Regular Well Visit/Exam 18-64 1996 Covid-19 Vaccine (4 2023-2 5 season) 2023 03/20/2021, 06/28/2020, 05/29/2020 Influenza Vaccine (#1) 2024 , 01/31/2020, 01/29/2018 HPV Vaccines Aged Out No longer eligi ble based on patient's age to complete this topic Pneumococcal vaccine <65 Aged Out No longer eligible based on patient's age to complete this topic Insurance ANTHEM ACCESS [facility] Address: [facility] [id number] [place] [address] ANTHEM ACCESS Care Teams Gear Machine Operator General Relationship Specialty Start Date End Date Aly Beck MD PCP - General Internal Medicine 02/19/21
== END 2024-11-16 11:51 | disposition home or self-care (01) ==
PROVIDERS: PCP Internal Medicine; Visit Provider Internal Medicine
DX: Z00.00 Encounter for general adult medical examination without abnormal findings (principal)
CPT/HCPCS: 93005

== ENCOUNTER 2025-01-31 15:58 | Emergency (ER) | payer BC, SELFPAY ==
--- NOTE | ~2025-01-31 | XR_ITS ---
EXAMINATION: XR elbow LT min 3V, 01/31/2025 16:00 ASSISTANT PROFESSOR OF MUSIC HISTORY: ELBOW PAIN COMPARISON: No comparisons available. Findings: No acute fracture or malalignment. No significant degenerative changes. Soft tissues unremarkable. Impression: No acute fracture or malalignment. Reviewed, dictated and finalized at location P. STANT PROFESSOR OF MUSIC Impression: No acute fracture or malalignment.
[2025-01-31 16:02] VITALS: BP 140/83; PULSE 83; RESP 20; TEMP 37.1; O2SAT 96
--- NOTE | 2025-01-31 16:06 | ED.UPPEXIN ---
HPI - Extremity Injury (Upper) General Chief Complaint: Extremity Injury, Upper Stated Complaint: ARM PAIN Time Seen by Provider: 01/31/25 16:06 Source: patient Mode of arrival: ambulatory History of Present Illness HPI narrative: Patient presents with sudden onset of severe left arm pain anteriorly after his large dog jerked his arm back suddenly patient felt a pop. Denies other injuries Related Data Allergies Allergy/AdvReac Type Severity Reaction Status Date / Time No Known Allergies Allergy Verified 01/31/25 16:08 Review of Systems Review of Systems: All systems reviewed & are unremarkable except as noted in HPI and below PMFSH Past Medical History Medical History Degenerative arthritis of right knee ACL (anterior cruciate ligament) rupture GERD (gastroesophageal reflux disease) LAURA (obstructive sleep apnea) CPAP Hyperlipidemia Surgical History Surgical History H/O knee surgery Social History Social History Tobacco type: cigarettes Alcohol intake: current Drinks per week: 10 Substance use: current Substance use type: marijuana Other substance usage details: Nightly for sleep Living arrangements: with family Additional living arrangements comments: With Janeth Spiritual care concerns: No Exam Narrative: General appearance: Well-developed, well-nourished Skin: Normal color Head: Normocephalic, nontraumatic Eyes: Clear conjunctiva ENT: Oropharynx normal, ears normal, nose normal Neck: Supple, nontender Chest and respiratory: Airway patent, no respiratory distress, no accessory muscle use Heart: Regular rate/rhythm Abdomen: Soft, nontender, no organomegaly, quiet bowel sounds Vascular: Normal peripheral pulses, normal capillary refill. Musculoskeletal: Left upper extremity showing a visible bulge in the arm anteriorly, Poppy eye muscle, weakness with supination otherwise no bruises, no rash, Neurologic: Alert and oriented ?3, FUSING MACHINE OPERATOR is normal as tested, no gross motor deficit Course Vital Signs Vital signs: Vital Signs Temperature 37.1 C 01/31/25 16:02 Pulse Rate 83 01/31/25 16:02 Respiratory Rate 20 01/31/25 16:02 Blood Pressure 140/83 01/31/25 16:02 Pulse Oximetry 96 01/31/25 16:02 Oxygen Delivery Room Air 01/31/25 16:02 Temperature 36.7 C 01/31/25 16:45 Pulse Rate 71 01/31/25 16:45 Respiratory Rate 20 01/31/25 16:45 Blood Pressure 128/77 01/31/25 16:45 Pulse Oximetry 95 01/31/25 16:45 Oxygen Delivery Room Air 01/31/25 16:45 MDM - Extremity Injury (Upper) MDM Narrative Medical decision making narrative: Differential diagnosis include distal biceps torn ligament X-ray of the elbow showed no acute abnormality Diagnosis distal biceps toward ligament Discharged on Tylenol,, sling, ice pack Follow-up with ortho. The pt was discharged to home.the pt,s condition upon discharge was fair,education was provided to the pt in reference to the final impression,discharge study results,treatment,prognosis and need for follow up . Differential Diagnosis Differential diagnosis: Likely other (As above) Imaging Data Radiologist's impression: Impressions Elbow X-Ray 01/31/25 16:27 Impression: No acute fracture or malalignment. Critical Care Time Critical Care Time Critical Care Time: No Discharge Plan Discharge Clinical Impression: Rupture of distal biceps tendon Patient Disposition: Home Condition: Stable Instructions: Tendon Rupture (ED) Additional Instructions: Return if symptoms are worsening , call your family physician for appointment, take Tylenol, ibuprofen as as needed for aches and pain, continue home medications. Rest: Avoid heavy lifting and overhead activities. Ice: Apply cold packs for 20 minutes at a time to reduce swelling See orthopedic for possible physical therapy or surgical treatment. Patient Language: St Helenian Prescriptions: No Action meloxicam 15 mg tablet 15 mg PO DAILY PRN (Reason: pain) Qty: 60 2RF Follow-up/Referrals: Hector Varghese MD [Physician, Orthopedics] - 02/01/25 Usama Velez MD [Physician, Orthopedics] - 02/01/25 Aly Beck MD [Primary Care Provider, Internal Medicine]
[2025-01-31] MEDS: ACETAMINOPHEN 500 MG TABLET 1000 MG PO (16:12)
[2025-01-31] MEDS: IBUPROFEN 600 MG TABLET PO (16:12)
--- OUTSIDE RECORDS SUMMARY | 2025-01-31 16:22 | XMS_ITS | Clinical Summary ---
Author Organization [facility] Address [address] [place] [address] Care Team Providers Care Restorer Paper And Prints Name Role Phone Aly Beck MD Primary Care Provider [phone] Source Comments [facility],non-owned Affiliates and Associated Physician Practices is amultiple site organization consisting of ambulatory clinics and hospital sitesin [place], [place], [place] and [place]. This disclosure is being madepursuant to the Care Everywhere program and may not contain all information available regarding this patient. Last updated 17.[facility] Allergies No known active allergies Medications * [...] on file Legal Sex Male 5:07 AM ELECTRONIC SCALE ASSEMBLER AND TESTER Gender Identity Not on file Sexual Orientation Not on file Last Filed Vital Signs Vital Sign Reading Time Taken Comments Blood Pressure - - Pulse - - Temperature - - Respiratory Rate - - Oxygen Saturation - - Inhaled Oxygen Concentration - - Weight 108.9 kg (240 lb) 05/25/2023 1:00 PM ELECTRONIC SCALE ASSEMBLER AND TESTER Height 172.7 cm (5' 8) 05/25/2023 1:00 PM ELECTRONIC SCALE ASSEMBLER AND TESTER Body Mass Index 36.49 05/25/2023 1:00 PM ELECTRONIC SCALE ASSEMBLER AND TESTER Plan of Treatment Health Maintenance Due Date [...] 3-dose series) 1997 SCREENING FOR DIABETES 05/25/2023 DEPRESSION SCREENING 03/22/2024 05/25/2023 COVID-19 VACCINE (1 - 2023-2 5 season) 2024 INFLUENZA VACCINE (#1) 2024 ZOSTER VACCINE (1 [...] topic Insurance ANTHEM BC/BLUE BLUE CROSS BLUE [facility] SELF PAY NO INSURANCE Member Subscriber Plan / Payer (Ef fective for All Dates) Name:Lara Proctor Member ID:Not on file Relation to Subscriber:Not on file Name:LARA PROCTOR Subscriber ID:Not on file (Home) Address: [address] [place] [address] Payer ID:Not on file Group ID:Not on file Type:Self Pay Address: [place], [place] ANTH Care Teams Restorer Paper And Prints Relationship Specialty Start Date End Date Aly Beck MD [address] [place] [address] PCP - General 04/13/22
--- OUTSIDE RECORDS SUMMARY | 2025-01-31 16:22 | XMS_ITS | Clinical Summary ---
[facility] Organization [facility] Address [address] [place] [address] Care Team Providers Care Drug Safety Associate Name Role Phone Aly Beck MD Primary Care Provider [phone] Allergies No known active allergies Medications pantoprazole [...] 03/03/2023 Assessment & Plan (03/03/2023 3:15 PM SUPPLY CHAIN TECHNICIAN): The detrimental effects of tobacco use were discussed with the patient. We discussed that smoking is a major risk factor for heart attacks, strokes, chronic obstructive pulmonary disease, and cancer. The importance of discontinuing the use of tobacco was discussed with the patient. Methods to aid in tobacco cessation including the cold [place] method, nicotine replacement therapy, and pharmacologic therapy were discussed. Electronic cigarettes and acupuncture were also discussed. LAURA on CPAP 03/31/2021 Overview (03/31/2021): DME in [facility] in [place] Assessment & Plan (03/03/2023 3:13 PM SUPPLY CHAIN TECHNICIAN): Patient is compliant with CPAP therapy Clearly [...] indefinately. Assessment & Plan (03/31/2021 2:00 PM SUPPLY CHAIN TECHNICIAN): Patient is compliant with CPAP therapy Clearly benefiting from therapy, should continue indefinately. He has significant aerophagia Will get CPAP settings form his provider Will try to adjust settings If no better will have to switch to Bipap and do a bipap titration in lab Encounters Date Type Department Care Team Description 11/27/2024 Telephone [facility] [address] [address] Jesus Wise MD from Last 3 Months Medical History Medical History Date Comments Sleep [...] on file Legal Sex Male 11:34 PM SUPPLY CHAIN TECHNICIAN Gender Identity Not on file Sexual Orientation [...] Well Visit/Exam 18-64 1996 Covid-19 Vaccine (4 - 2024-2 6 season) 2024 03/20/2021, 06/28/2020, 05/29/2020 Influenza Vaccine (#1) 2024 , 01/31/2020, 01/29/2018 HPV Vaccines Aged Out No longer eligi ble based on patient's age to complete this topic Pneumococcal vaccine <65 Aged Out No longer eligible based on patient's age to complete this topic Insurance [id number] [place] [address] ANTHEM ACCESS Care Teams Drug Safety Associate Relationship Specialty Start Date End Date Aly Beck MD PCP - General Internal Medicine 02/19/21
--- OUTSIDE RECORDS SUMMARY | 2025-01-31 16:22 | XMS_ITS | Clinical Summary ---
Author Organization [facility] on Address [address] [place] [address] [place] [address] Care Team Providers Care Padding Machine Operator Name Role Phone Unavailable Primary Care Provider [...] on file Legal Sex Male 8:59 AM SOFTWARE WRITER Gender Identity Not on file Sexual Orientation Not on file Last Filed Vital Signs Vital Sign Reading Time Taken Comments Blood Pressure 156/93 02/14/2019 9:06 AM SOFTWARE WRITER dis cussed Pulse 79 02/14/2019 9:06 AM SOFTWARE WRITER Temperature 36.9 C (98.5 F) 02/14/2019 9:06 AM SOFTWARE WRITER Respiratory Rate 18 02/14/2019 9:06 AM SOFTWARE WRITER Oxygen Saturation 98% 02/14/2019 9:06 AM SOFTWARE WRITER Inhaled Oxygen Concentration - - Weight 108.9 kg (240 lb) 02/14/2019 9:06 AM SOFTWARE WRITER Height - - Body Mass Index - [...]
[2025-01-31 16:45] VITALS: BP 128/77; PULSE 71; RESP 20; TEMP 36.7; O2SAT 95
--- OUTSIDE RECORDS SUMMARY | 2025-01-31 16:52 | XMS_ITS | Clinical Summary ---
Author Organization [facility] A Address [address] [facility] [address] Care Team Providers Care Ground Control Approach Technician Name Role Phone Aly Beck MD Primary Care Provider [phone] Allergies No known active allergies Medications pantoprazole [...] 03/03/2023 Assessment & Plan (03/03/2023 3:15 PM COMMERCIAL DRIVER'S LICENSE DRIVER): The detrimental effects of tobacco use were discussed with the patient. We discussed that smoking is a major risk factor for heart attacks, strokes, chronic obstructive pulmonary disease, and cancer. The importance of discontinuing the use of tobacco was discussed with the patient. Methods to aid in tobacco cessation including the cold [place] method, nicotine replacement therapy, and pharmacologic therapy were discussed. Electronic cigarettes and acupuncture were also discussed. LAURA on CPAP 03/31/2021 Overview (03/31/2021): DME in [facility] in [place] Assessment & Plan (03/03/2023 3:13 PM COMMERCIAL DRIVER'S LICENSE DRIVER): Patient is compliant with CPAP therapy Clearly [...] indefinately. Assessment & Plan (03/31/2021 2:00 PM COMMERCIAL DRIVER'S LICENSE DRIVER): Patient is compliant with CPAP therapy Clearly benefiting from therapy, should continue indefinately. He has significant aerophagia Will get CPAP settings form his provider Will try to adjust settings If no better will have to switch to Bipap and do a bipap titration in lab Encounters Date Type Department Care Team Description 11/27/2024 Telephone [facility] [address] [address] Jesus Wise MD from Last [...] on file Legal Sex Male 11:34 PM COMMERCIAL DRIVER'S LICENSE DRIVER Gender Identity Not on file Sexual Orientation [...] patient's age to complete this topic Insurance [id number] [place] [address] ANTHEM ACCESS Care Teams Ground Control Approach Technician Relationship Specialty Start Date End Date Aly Beck MD PCP - General Internal Medicine 02/19/21
--- OUTSIDE RECORDS SUMMARY | 2025-01-31 16:52 | XMS_ITS | Clinical Summary ---
Author Organization [facility] Address [address] [place] [address] [place] [address] Care Team Providers Care Field Control Inspector Name Role Phone Unavailable Primary Care Provider [...] on file Legal Sex Male 8:59 AM COMPUTER TERMINAL OPERATOR Gender Identity Not on file Sexual Orientation Not on file Last Filed Vital Signs Vital Sign Reading Time Taken Comments Blood Pressure 156/93 02/14/2019 9:06 AM COMPUTER TERMINAL OPERATOR dis cussed Pulse 79 02/14/2019 9:06 AM COMPUTER TERMINAL OPERATOR Temperature 36.9 C (98.5 F) 02/14/2019 9:06 AM COMPUTER TERMINAL OPERATOR Respiratory Rate 18 02/14/2019 9:06 AM COMPUTER TERMINAL OPERATOR Oxygen Saturation 98% 02/14/2019 9:06 AM COMPUTER TERMINAL OPERATOR Inhaled Oxygen Concentration - - Weight 108.9 kg (240 lb) 02/14/2019 9:06 AM COMPUTER TERMINAL OPERATOR Height - - Body Mass Index [...]
== END 2025-01-31 16:45 | disposition home or self-care (01) ==
LOC: CHSED 16:51
PROVIDERS: Emergency Provider Emergency Medicine; PCP Internal Medicine
DX: S46.212A Strain of muscle, fascia and tendon of other parts of biceps, left arm, initial encounter (principal); E78.5 Hyperlipidemia, unspecified; X50.0XXA Overexertion from strenuous movement or load, initial encounter
CPT/HCPCS: 73080; 99283; A4565; A9270

== ENCOUNTER 2025-02-12 02:13 | Day surgery (SDC) | payer BC, SELFPAY ==
[2025-02-07 09:57] VITALS: BMI 35.7
--- NOTE | 2025-02-07 10:44 | PC.NURSE ---
[facility] has started construction of its new state of the art ER which will open Spring 2026. With this, we anticipate parking may be a challenge for some our surgical patients and families. Parking spaces are limited but are available for all Surgical, obstetrics, and ER patients sharing this lot. If you arrive and find you are having a hard time finding a parking space, please note that we understand the challenges, please drive around the hospital and park near Hospital Entrance 1. When you enter this entrance, you can ask a volunteer to direct or take you back to the surgical waiting area to check in. We appreciate everyone?s understanding of these expected challenges while we build for your future. Report to the Outpatient Waiting Room, entrance under the green pavilion located off [address], at 0600 on 02-12-25. Planned Procedure Time: 0730.? Time changes happen often and if your time is changed the preop area will call you the afternoon before. - You and your visitor will be asked to self-screen and do not enter if you have any COVID symptoms. Please call surgeon if you need to reschedule. - A mask is optional within the hospital at this time. Patients may have clear liquids (water, carbonated beverages, clear teas, apple juice) until 3 hours prior to surgery with a maximum of 20 ounces. - No food from midnight until time of surgery and no smoking, or chewing tobacco (or any form of nicotine). No chewing gum, candy or mints. - Infants may have breast milk until 4 hours before surgery, infant formula 6 hours prior to surgery. - Children will be allowed to drink immediately following surgery.? If applicable, please bring a bottle or sippy cup to assist with drinking. Juice, water, soda, and popsicles are readily available.? For infants on formula, please bring formula the day of surgery.? Pacifiers are allowed. Take only the following medications with a SIP of water on the morning of surgery: Tylenol if needed DO NOT STOP ANY OF YOUR OTHER PRESCRIPTION MEDICATIONS PRIOR TO SURGERY EXCEPT THE FOLLOWING Hold all vitamins and supplements for 3 days per anesthesiologist. Medications to discontinue per physician: Meloxicam and ibuprofen Date to take last dose 02-05-[address] Velez's pre-op order set Please no make-up, nail gambian, hairspray, perfume, deodorant, or body powder the day of surgery.? No jewelry (including any body piercings) or valuables the day of surgery, leave them at home.? Please take a shower or bath the night before, or the morning of, surgery with an antibacterial soap.? Wear comfortable, loose fitting clothing.? Children are encouraged to wear pajamas. - Jewelry must be removed prior to entering the operating room.? Rings and piercings that are not removed may be cut off. - The hospital will not accept responsibility for valuables.? - Please leave all valuables, including medications, at home the day of surgery. If you are going home after surgery, a licensed tow truck driver must drive you home.? - NO public transportation without another adult if you receive anesthesia. - We recommend that an adult stay with you for 24 hours following discharge. - We also recommend that you do not drive, make important decision, drink alcoholic beverages, or take any drugs that were not prescribed by your health care provider for at least 24 hours after your discharge time. For Pediatric surgeries, we recommend two adults accompany the child home. Follow any additional instructions given to you from your surgeon. Telephone instructions given to Mahad Proctor and asked if any additional questions and then verbalized understanding. Patient advised to call surgeon office or pre surgery nurse liaison [phone] if any additional questions.
[2025-02-12] VITALS (10 sets, daily range): BP systolic 108–129; BP diastolic 62–78; PULSE 60–95; RESP 12–18; TEMP 36.2; O2SAT 98–100; BMI 34.9
--- NOTE | ~2025-02-12 | XR_ITS ---
EXAMINATION: XR surgery orthopedic DATE: 02/12/2025 08:40 INDICATION: Left distal biceps tendon repair TECHNIQUE: 3 fluoroscopic images of the left elbow and proximal forearm were obtained procedure performed by Dr. Jane. Radiologist was not present for the imaging or procedure. The amount of fluoroscopy time used during this procedure was 0.2 minutes. The dose area product was 1.935 cGcm^2. COMPARISON: None. FINDINGS: Images demonstrate a lucent likely suture anchor tracks for distal biceps tendon repair at the radial tuberosity with small metallic button at the opposite side of the lucent tunnel. There is expected soft tissue gas about the operative bed. Alignment and joint space at the left elbow appear normal. No fractures. IMPRESSION: 1. Fluoroscopy utilized during the left biceps tendon repair. See procedure note for further detail. Reviewed, dictated and finalized at location A. ER MIXER HELPER IMPRESSION: 1. Fluoroscopy utilized during the left biceps tendon repair. See procedure not e for further detail.
--- OUTSIDE RECORDS SUMMARY | 2025-02-12 02:16 | XMS_ITS | Clinical Summary ---
Author Organization [facility] A Address [address] [place] [address] Care Team Providers Care Assistant Produce Manager Name Role Phone Aly Beck MD Primary Care Provider [phone] Allergies No known active allergies Medications pantoprazole [...] 03/03/2023 Assessment & Plan (03/03/2023 3:15 PM MACHINIST APPRENTICE): The detrimental effects of tobacco use were discussed with the patient. We discussed that smoking is a major risk factor for heart attacks, strokes, chronic obstructive pulmonary disease, and cancer. The importance of discontinuing the use of tobacco was discussed with the patient. Methods to aid in tobacco cessation including the cold [place] method, nicotine replacement therapy, and pharmacologic therapy were discussed. Electronic cigarettes and acupuncture were also discussed. LAURA on CPAP 03/31/2021 Overview (03/31/2021): DME in [facility] in [place] Assessment & Plan (03/03/2023 3:13 PM MACHINIST APPRENTICE): Patient is compliant with CPAP therapy Clearly [...] indefinately. Assessment & Plan (03/31/2021 2:00 PM MACHINIST APPRENTICE): Patient is compliant with CPAP therapy Clearly benefiting from therapy, should continue indefinately. He has significant aerophagia Will get CPAP settings form his provider Will try to adjust settings If no better will have to switch to Bipap and do a bipap titration in lab Encounters Date Type Department Care Team Description 11/27/2024 Telephone [facility] [address] [address] Jesus Wise MD from Last [...] on file Legal Sex Male 11:34 PM MACHINIST APPRENTICE Gender Identity Not on file Sexual Orientation [...] patient's age to complete this topic Insurance [id number] [place] [address] [facility] Address: [place] [address] ANTHEM ACCESS Care Teams Assistant Produce Manager Relationship Specialty Start Date End Date Aly Beck MD PCP - General Internal Medicine 02/19/21
--- OUTSIDE RECORDS SUMMARY | 2025-02-12 02:16 | XMS_ITS | Clinical Summary ---
Author Organization [facility] on Address [address] [place] [address] Care Team Providers Care Regional Loss Prevention Manager Name Role Phone Unavailable Primary Care Provider [...] on file Legal Sex Male 8:59 AM CHLORINATOR Gender Identity Not on file Sexual Orientation Not on file Last Filed Vital Signs Vital Sign Reading Time Taken Comments Blood Pressure 156/93 02/14/2019 9:06 AM CHLORINATOR dis cussed Pulse 79 02/14/2019 9:06 AM CHLORINATOR Temperature 36.9 C (98.5 F) 02/14/2019 9:06 AM CHLORINATOR Respiratory Rate 18 02/14/2019 9:06 AM CHLORINATOR Oxygen Saturation 98% 02/14/2019 9:06 AM CHLORINATOR Inhaled Oxygen Concentration - - Weight 108.9 kg (240 lb) 02/14/2019 9:06 AM CHLORINATOR Height - - Body Mass Index - [...] patient's age to complete this topic Insurance [facility]
--- OUTSIDE RECORDS SUMMARY | 2025-02-12 02:16 | XMS_ITS | Clinical Summary ---
Author Organization [facility] Address [address] [place] [address] Care Team Providers Care Ux Researcher Name Role Phone Aly Beck MD Primary Care Provider [phone] Source Comments [facility],non-owned Affiliates and Associated Physician Practices is amultiple site organization consisting of ambulatory clinics and hospital sitesin [place], [place], [place] and [place]. This disclosure is being madepursuant to the Care Everywhere program and may not contain all information available regarding this patient. Last updated 17.[facility] Allergies No known active allergies Medications * [...] on file Legal Sex Male 5:07 AM [facility] Gender Identity Not on file Sexual Orientation Not on file Last Filed Vital Signs Vital Sign Reading Time Taken Comments Blood Pressure - - Pulse - - Temperature - - Respiratory Rate - - Oxygen Saturation - - Inhaled Oxygen Concentration - - Weight 108.9 kg (240 lb) 05/25/2023 1:00 PM [facility] Height 172.7 cm (5' 8) 05/25/2023 1:00 PM [facility] Body Mass Index 36.49 05/25/2023 1:00 PM [facility] Plan of Treatment Health Maintenance Due Date [...] SCREENING 03/22/2024 05/25/2023 COVID-19 VACCINE (1 - 2024-2 6 season) 2024 INFLUENZA VACCINE (#1) 2024 ZOSTER [...] topic Insurance [employer] BC/BLUE BLUE [employer] [facility] SELF PAY NO INSURANCE Member Subscriber Plan / Payer (Ef fective for All Dates) Name:Lara Proctor Member ID:Not on file Relation to Subscriber:Not on file Name:LARA PROCTOR Subscriber ID:Not on file (Home) Address: [address] [place] [address] Payer ID:Not on file Group ID:Not on file Type:Self Pay Address: [place], [place] ANTH Care Teams Ux Researcher Relationship Specialty Start Date End Date Aly Beck MD [address] [place] [address] PCP - General 04/13/22
[2025-02-12] MEDS: LACTATED RINGERS 1,000 ML 30 ML IV CONT ×2 (06:40→09:03)
[2025-02-12] MEDS: KETOROLAC 15 MG/ML VIAL (*BKC) IV PUSH (06:42)
[2025-02-12] MEDS: ACETAMINOPHEN 500 MG TABLET 1000 MG PO (06:42)
--- NOTE | 2025-02-12 07:05 | P.PNAN_ITS ---
Anes - Initial Pre Proc Eval Procedure: Operation Date: 02/12/25 07:30 Proposed Procedures p Left Distal Biceps Tendon Repair - Usama Velez MD Date/Time: 02/12/25 07:05 Surgeon: Usama Velez MD Pre Op Diagnosis: left distal biceps tendon rupture Patient Data Age: 44 Gender: M Height: 1.73 m Weight: 104.2 kg Allergies Allergy/AdvReac Type Severity Reaction Status Date / Time No Known Allergies Allergy Verified 02/07/25 09:56 Home Medications ?Medication ?Instructions ?Recorded ?Confirmed ?Type acetaminophen 500 mg tablet 1,000 mg PO Q6H PRN pain 1 04/09/24 02/12/25 History (Tylenol Extra Strength) ibuprofen 200 mg tablet (Advil) 400 mg PO Q4H PRN pain 02/07/25 02/12/25 History meloxicam 15 mg tablet 15 mg PO DAILY pain 02/07/25 02/12/25 History pantoprazole 40 mg tablet,delayed 40 mg PO DAILY PRN a cheyenne reflux 02/07/25 02/12/25 History release Patient hx anesthesia problems: none Family hx anesthesia problems: none Results Review: All pre-operative results and documents have been reviewed as part of the pre- operative evaluation. [facility] Past Medical History Medical History Degenerative arthritis of right knee ACL (anterior cruciate ligament) rupture GERD (gastroesophageal reflux disease) LAURA (obstructive sleep apnea) CPAP Hyperlipidemia Surgical History Surgical History H/O knee surgery Social History Social History Smoking status: Former smoker Tobacco type: cigarettes Second hand tobacco smoke exposure: No Alcohol intake: current Drinks per week: 10 Substance use: current Substance use type: does not use Other substance usage details: Nightly for sleep Living arrangements: with family Additional living arrangements comments: With Janeth Spiritual care concerns: No Anes - Eval Final PreProcedure Day of Procedure 02/12/25 07:05 Patient weight: obese Lungs: normal air movement Airway: Mallampati scale class II Neurological: alert and oriented Last oral intake: >/= 8 hours ASA classification: III Emergent: no Anesthetic plan: proceed Anesthesia type and monitoring: general LMA and standard monitoring Results Review: All pre-operative results and documents have been reviewed as part of the pre- operative evaluation. LAURA on CPAP, BMI 35, current smoker 5-10 cigs/day, none this am. Pt active w hunting and fishing, no cp or sob. Informed Consent: The patient's anesthetic plan and its attendant risks and benefits were discusse d with the patient/family/POA. Questions were solicited and answers provided to the satisfaction of the patient/family/POA.
--- NOTE | 2025-02-12 07:14 | WPDHPUPDATE1 ---
History and Physical Update Update Date/Time: 02/12/25 07:14 History and Physical has been reviewed, including an updated exam of the patient. There are NO changes in the patient's condition. Left elbow mri shows complete biceps tear. Reviewed with patient. He wishes to proceed with biceps repair. Risks, benefits, and alternatives have been discussed and questions answered. Patient agrees to proceed with procedure.
[2025-02-12] MEDS: ceFAZolin 2 GM in SODIUM CHLORIDE 0.9% IV 50 ML 100 ML IVPB (07:30)
--- NOTE | 2025-02-12 09:03 | P.OP_ITS ---
Procedure Note - Detailed Date of Procedure 02/12/25 Pre-op Diagnosis left distal biceps tendon rupture Post-op Diagnosis Same Procedure Performed Repair left distal biceps tendon rupture Surgeon Usama Velez MD Extrusion Technician 1st public relations assistant Anesthesia General Indications 44-year-old who injured his left elbow 2 weeks ago. MRI confirms complete rupture of the distal biceps tendon. Patient desires operative repair Description of Procedure Patient identified in the preoperative holding. Informed consent given. Operative extremity marked. Patient received intravenous antibiotics. Patient brought to the operating room where underwent general anesthetic by anesthesia team. Positioned supine on operating room table. Time-out performed confirming the patient, site of the surgery and the plan. Left arm prepped draped usual sterile surgical fashion using a ChloraPrep skin solution. Hand and forearm were exsanguinated and arm tourniquet inflated to 250 mm Hg. Local anesthetic with 0.5% Marcaine plain. Transverse incision made 4 cm distal to the elbow crease. Sensory structures were identified and protected. Blunt dissection carried through to the fascia which was divided in line with the skin incision. Using a finger sweep method we then bluntly dissected proximally to find the biceps tendon stump. This was located at the elbow crease. Allis clamp was used to bring the tendon out. Distal tendon was debrided with 15 blade knife. Whipstitch was then placed in the distal tendon with a 2. FiberWire. We then turned attention to the radial tuberosity. Dissection carried down to the tuberosity and retractors carefully placed. No dissection was done posterior to the tuberosity. Guide pin was placed into the tuberosity and verified with image intensification. The tendon was sized and noted to be 6 diameter. The dorsal cortex was then drilled at a 6mm. Thorough irrigation and suction was done of bone fragments. Suture button was then placed through the radius and secured on the backside. Tendon was then advanced into the radial tuberosity and secured with stitch back through the tendon. Good fixation was noted. Elbow was taken through range of motion good stability without impingement was verified. Image intensification confirmed placement the suture button on the radius. Wound thoroughly irrigated and subcutaneous tissue closed with 3-0 Monocryl interrupted suture. Skin repaired with 3-0 Monocryl running subcuticular stitch and Exofin. Sterile dressing applied. The patient was then woken from anesthesia, extubated and taken to the recovery room in stable condition. All sponge, needle, instrument counts were correct at the end of the case. Implants Arthrex suture button Estimated Blood Loss 5 Tourniquet Time Total Tourniquet Time: 50 Drains No Packing No Pathology None sent Complications None Condition Stable Disposition PACU [facility] Billing Surgery - Charge Forward: Surgery Billing ([id number])
[2025-02-12] MEDS: fentaNYL CITRATE INJ (*CRX) 100 MCG/2 ML VIAL 25 MCG IV PUSH ×6 (09:22→09:41)
[2025-02-12] MEDS: oxyCODONE HCL (*CRX) 5 MG TAB IR PO (10:15)
== END 2025-02-12 11:25 | disposition home or self-care (01) ==
PROVIDERS: PCP Internal Medicine; Visit Provider Orthopaedic Surgery
PROC: (CPT 24341; principal; 2025-02-12 07:30)
DX: S46.212A Strain of muscle, fascia and tendon of other parts of biceps, left arm, initial encounter (principal); W54.8XXA Other contact with dog, initial encounter; E78.5 Hyperlipidemia, unspecified; K21.9 Gastro-esophageal reflux disease without esophagitis; M17.11 Unilateral primary osteoarthritis, right knee; G47.33 Obstructive sleep apnea (adult) (pediatric); F12.90 Cannabis use, unspecified, uncomplicated; F17.210 Nicotine dependence, cigarettes, uncomplicated; E66.9 Obesity, unspecified; Z68.34 Body mass index [BMI] 34.0-34.9, adult; Z79.1 Long term (current) use of non-steroidal anti-inflammatories (NSAID); Z99.89 Dependence on other enabling machines and devices; Z98.890 Other specified postprocedural states
CPT/HCPCS: 24342; 99199; J0690; A4565; A9270; C1713; J1100; J1171; J1885; J2003; J2250; J2405; J2704; J3010; J7120